=== PATIENT | female | born 1990 | race Two or more races ===

== ENCOUNTER 2024-06-27 13:56 | Emergency (ER) | payer OTHER ==
[~2024-06-27] VITALS: Ht 170.2 cm; Wt 66.7 kg
[2024-06-27] MEDS ORDERED: ORPHENADRINE CITRATE 30 MG/ML AMPUL ONE (18:30)
[2024-06-27] MEDS ORDERED: ORPHENADRINE CITRATE 30 MG/ML AMPUL IV ONE (18:30)
[2024-06-27] MEDS ORDERED: TRIAMCINOLONE ACETONIDE 40 MG/ML VIAL ONE (18:30)
[2024-06-27] MEDS ORDERED: TRIAMCINOLONE ACETONIDE 40 MG/ML VIAL IM ONE (18:30)
[2024-06-27 19:11] LABS: URINE APPEARANCE Cloudy; URINE BILIRRUBIN Negative (NEGATIVE); URINE BLOOD Negative; URINE COLOR Yellow; URINE GLUCOSE Negative (NEGATIVE); URINE KETONE Negative (NEGATIVE); URINE LEUKOCYTE Trace; URINE NITRATE Negative; URINE PROTEIN Negative (NEGATIVE)
[2024-06-27 19:17] LABS: URINE EPITHELIAL CELLS 18.2 uL (0.0-38.8); URINE RBC 30.7 uL (0.0-20.8); URINE WBC 31.5 uL (0.0-23.2)
[2024-06-27 19:38] LABS: URINE BACTERIA > 9821.5 uL (0.0-1933); URINE CAST 0.73 uL (0.0-1.40)
[2024-06-27] MEDS ORDERED: MEDROLPACK PO (21:15)
[2024-06-27] MEDS ORDERED: DICLOFENAC SODI50 MG PO (21:15)
[2024-06-27] MEDS ORDERED: NORFLEX100MG PO (21:15)
[2024-06-27] MEDS ORDERED: MACROBID 100 M100 MG PO (21:15)
== END 2024-06-27 21:46 ==
LOC: ER 13:56
PROVIDERS: Preventive Medicine Public Health & General Preventive Medicine
DX: N39.0 Urinary tract infection, site not specified (principal); M54.50 Low back pain, unspecified
CPT/HCPCS: 36415; 72100; 96365; 96372; 99283; J2360; J3301